=== PATIENT | female | born 1965 | race African-American/Black ===

== ENCOUNTER 2019-03-03 18:20 | Emergency (ER) | payer BC ==
[2019-03-03 19:01] LABS: #Basophils 0.1 thou/uL (0.0-0.2); #Eosinphils 0.1 thou/uL (0.0-0.7); #Lymphocytes 3.8 thou/uL (1.20-3.40); #Monocytes 0.5 thou/uL (0.11-0.59); #Neutrophils 7.4 thou/uL (1.40-6.50); %Eosinophils 0.8 % (0.0-10.0); %Lymphocytes 31.7 % (21.0-51.0); %Monocytes 4.1 % (0.0-10.0); %Neutrophils 62.4 % (42.0-75.0); Hemoglobin 13.8 g/dL (12.0-16.0); Mean Corpuscular HGB CONC 32.2 g/dL (32.0-36.0); Mean Corpuscular Hemoglobin 29.1 pg (27.0-31.0); Mean Corpuscular Volume 90.2 fL (78.0-98.0); Mean Platelet Volume 7.7 fL (7.4-10.4); Platelet Count 290 thou/uL (130-400); RBC Distribution Width 12.8 % (11.5-14.5); Red Blood Cell (RBC) Count 4.76 mill/uL (4.20-5.40); White Blood Cell (WBC) Count 11.8 thou/uL (4.8-10.8)
--- NOTE | 2019-03-03 19:15 | RAD ---
Exam: XR Shoulder Lt 3 View STANDARD HISTORY: Injury to left shoulder. Patient has left shoulder pain after falling today. COMPARISON: None FINDINGS: The coracoclavicular and acromioclavicular distances are within normal limits. There is a prominent o steophyte extending inferiorly from the acromion. Mild left glenohumeral osteoarthropathy is present. There is slight irregularity of the medial margin of the lower body of the scapula probably developmental in origin. This is not thought to represent a fracture. No acute fracture, dislocation, or other acute osseous abnormality is identified. IMPRESSION: No acute osseous abnormality is identified.
[2019-03-03 19:27] LABS: ALT (SGPT) 12 U/L (8-55); AST (SGOT) 13 U/L (5-34); Alkaline Phosphatase 104 U/L (40-150); Anion Gap 16 mmol/L (10-20); BUN (Urea Nitrogen) 15 mg/dL (9.8-20.1); Bilirubin, Total 0.3 mg/dL (0.2-1.2); Calc. Creatinine Clearance 0 mL/min (70-130); Calcium 9.2 mg/dL (7.8-10.44); Carbon Dioxide 22 mmol/L (22-29); Chloride 106 mmol/L (98-107); Estimated GFR-MDRD 74; Globulin 3.5 g/dL (2.4-3.5); Glucose 269 mg/dL (70-105); Potassium 3.9 mmol/L (3.5-5.1); Protein, Total 7.5 g/dL (6.0-8.3); Sodium 140 mmol/L (136-145)
[2019-03-03] MEDS ORDERED: Ketorolac Tromethamine 30 MG/ML VIAL ONE (19:27)
--- NOTE | 2019-03-03 20:24 | RAD ---
LEFT HUMERUS: 03/03/19 Two views. HISTORY: Fall with injury. There are no comparison films. There is deformity of the mid diaphysis of the left humerus which appears to represent old healed fra cture. Humeral head is normally positioned. No evidence of dislocation. No acute fracture identified . IMPRESSION: Deformity of the mid left humerus consistent with old healed fracture. POS: [facility]
== END 2019-03-03 20:21 | disposition home or self-care (01) ==
LOC: ERS 18:20
DX: S40.012A Contusion of left shoulder, initial encounter (principal); S00.03XA Contusion of scalp, initial encounter; E11.65 Type 2 diabetes mellitus with hyperglycemia; I10 Essential (primary) hypertension; W01.0XXA Fall on same level from slipping, tripping and stumbling without subsequent striking against object, initial encounter; Y93.01 Activity, walking, marching and hiking
CPT/HCPCS: 36415; 80053; 84484; 85025; 93005; 96372; J1885

== ENCOUNTER 2020-12-17 08:44 | Observation (INO) | payer BC ==
[2020-12-17 10:25] LABS: #Basophils 0.2 thou/uL (0.0-0.2); #Eosinphils 0.1 thou/uL (0.0-0.7); #Monocytes 0.3 thou/uL (0.11-0.59); #Neutrophils 4.6 thou/uL (1.40-6.50); %Basophils 1.7 % (0.0-1.0); %Eosinophils 0.9 % (0.0-10.0); %Lymphocytes 43.5 % (21.0-51.0); %Monocytes 3.2 % (0.0-10.0); %Neutrophils 50.7 % (42.0-75.0); Hemoglobin 13.2 g/dL (12.0-16.0); Mean Corpuscular HGB CONC 31.3 g/dL (32.0-36.0); Mean Corpuscular Hemoglobin 29.9 pg (27.0-31.0); Mean Corpuscular Volume 95.5 fL (78.0-98.0); Mean Platelet Volume 7.6 fL (7.4-10.4); Platelet Count 331 thou/uL (130-400); RBC Distribution Width 14.5 % (11.5-14.5); Red Blood Cell (RBC) Count 4.42 mill/uL (4.20-5.40); White Blood Cell (WBC) Count 9.2 thou/uL (4.8-10.8)
[2020-12-17 10:50] LABS: ALT (SGPT) 8 U/L (8-55); AST (SGOT) 8 U/L (5-34); Albumin 3.9 g/dL (3.5-5.0); Alkaline Phosphatase 83 U/L (40-110); Anion Gap 15 mmol/L (10-20); BUN (Urea Nitrogen) 14 mg/dL (9.8-20.1); Bilirubin, Total 0.6 mg/dL (0.2-1.2); Calc. Creatinine Clearance 0 mL/min (70-130); Calcium 9.2 mg/dL (7.8-10.44); Carbon Dioxide 27 mmol/L (22-29); Chloride 102 mmol/L (98-107); Globulin 3.7 g/dL (2.4-3.5); Glucose 142 mg/dL (70-105); Potassium 3.4 mmol/L (3.5-5.1); Protein, Total 7.6 g/dL (6.0-8.3); Sodium 141 mmol/L (136-145)
[2020-12-17] MEDS ORDERED: Aspirin Chewable 81 MG TAB ONE (11:54)
[2020-12-17] MEDS ORDERED: hydrALAZINE 20 MG/ML VIAL SLOW IVP PRN (12:26)
[2020-12-17] MEDS ORDERED: Insulin Regular 300 UNITS/3 ML VIAL SC PRN (12:28)
[2020-12-17] MEDS ORDERED: Dextrose 50% Abboject 50 ML SYRINGE SLOW IVP PRN (12:28)
[2020-12-17] MEDS ORDERED: Dextrose 5% in Water 1,000 ML IV PRN (12:28)
[2020-12-17] MEDS ORDERED: Ondansetron ODT 4 MG TAB PO PRN (12:29)
[2020-12-17] MEDS ORDERED: Senokot S 8.6-50 MG TAB PO PRN (12:29)
[2020-12-17] MEDS ORDERED: Ondansetron PF 4 MG/2 ML Vial IVP PRN (12:29)
[2020-12-17] MEDS ORDERED: Calcium Carbonate 500 MG ChewTAB PO PRN (12:29)
[2020-12-17] MEDS ORDERED: Bisacodyl 10 MG SUPP PR PRN (12:29)
[2020-12-17] MEDS ORDERED: Acetaminophen 325 MG TAB PO PRN (12:29)
[2020-12-17] MEDS ORDERED: Sodium Chloride 0.9% 1,000 ML IV SCH (12:30)
[2020-12-17] MEDS ORDERED: Aspirin 325 MG TAB PO SCH (12:30)
[2020-12-17] MEDS ORDERED: Ibuprofen 200 MG TAB PO PRN (12:30)
[2020-12-17] MEDS ORDERED: Enalaprilat Dihydrate 1.25 MG/ML VIAL SLOW IVP PRN (12:31)
[2020-12-17 13:24] LABS: INR-International Normal Ratio 1.1; PTT 27.5 sec (22.9-36.1); Prothrombin Time 14.2 sec (12.0-14.7)
[2020-12-17 13:34] LABS: CRP (Inflammatory) 3.51 mg/dL (= or < 0.5); Magnesium 2.1 mg/dL (1.6-2.6)
[2020-12-17 13:59] LABS: Thyroid Stimulating Hormone 1.3559 uIU/mL (0.35-4.94)
[2020-12-17] MEDS ORDERED: Iopamidol-370 76% 500 ML 1 ML ONE (14:02)
[2020-12-17] MEDS ORDERED: Cyanocobalamin 1000 MCG/ML VIAL IM SCH (14:15)
[2020-12-17] MEDS ORDERED: Folic Acid 1 MG TAB PO SCH (14:15)
[2020-12-17] MEDS ORDERED: Potassium Chloride 20 MEQ TAB PO SCH (17:00)
[2020-12-17] MEDS: Famotidine 20 MG TAB PO SCH (20:32)
[2020-12-17] MEDS: Lisinopril 10 MG TAB PO SCH (20:32)
[2020-12-17] MEDS: Folic Acid 1 MG TAB PO SCH (20:32)
[2020-12-17] MEDS: Multivit, Therapeutic 1 TAB PO SCH (20:33)
[2020-12-17] MEDS: Atorvastatin Calcium 40 MG TAB PO SCH (20:33)
[2020-12-17] MEDS ORDERED: Insulin Glargine 20 UNITS in Pre-Filled Syringe 1 EACH SC SCH (21:00)
[2020-12-17] MEDS ORDERED: Famotidine/PF 20 mg/2ml Vial SLOW IVP SCH (21:00)
[2020-12-17 21:52] LABS: SARS-CoV-2 PCR by NAA Not Detected (NotDetected)
[2020-12-18 05:34] LABS: #Basophils 0.1 thou/uL (0.0-0.2); #Eosinphils 0.1 thou/uL (0.0-0.7); #Lymphocytes 3.6 thou/uL (1.20-3.40); #Monocytes 0.5 thou/uL (0.11-0.59); #Neutrophils 4.4 thou/uL (1.40-6.50); %Eosinophils 1.1 % (0.0-10.0); %Lymphocytes 42.2 % (21.0-51.0); %Monocytes 5.2 % (0.0-10.0); %Neutrophils 50.6 % (42.0-75.0); Hemoglobin 11.3 g/dL (12.0-16.0); Mean Corpuscular Hemoglobin 30.3 pg (27.0-31.0); Mean Corpuscular Volume 94.8 fL (78.0-98.0); Mean Platelet Volume 7.6 fL (7.4-10.4); Platelet Count 295 thou/uL (130-400); RBC Distribution Width 14.5 % (11.5-14.5); Red Blood Cell (RBC) Count 3.74 mill/uL (4.20-5.40); White Blood Cell (WBC) Count 8.6 thou/uL (4.8-10.8)
[2020-12-18 05:53] LABS: Anion Gap 11 mmol/L (10-20); BUN (Urea Nitrogen) 17 mg/dL (9.8-20.1); Calc. Creatinine Clearance 162 mL/min (70-130); Calcium 8.5 mg/dL (7.8-10.44); Carbon Dioxide 27 mmol/L (22-29); Cardiac Risk 3.5 (Less than 4.5); Chloride 102 mmol/L (98-107); Cholesterol 147 mg/dl (< 200 Desired); Glucose 353 mg/dL (70-105); HDL Cholesterol 42 mg/dL (>60 Neg Risk); LDL Cholesterol, Calculated 91 mg/dL; Sodium 136 mmol/L (136-145); Triglycerides 69 mg/dL (Less than 150)
[2020-12-18] MEDS: Insulin Regular 300 UNITS/3 ML VIAL SC PRN ×3 (06:05→18:16)
[2020-12-18] MEDS ORDERED: Aspirin 325 mg Enteric Coated Tablet PO SCH (09:00)
[2020-12-18] MEDS ORDERED: FLU VACC QS2020-21(6MOS UP)/PF 60 MCG/0.5 ML SYRINGE IM ONE (09:00)
[2020-12-18] MEDS ORDERED: Insulin Glargine 20 UNITS in Pre-Filled Syringe 1 EACH SC SCH (09:00)
[2020-12-18] MEDS: Lisinopril 10 MG TAB PO SCH ×2 (09:22→21:17)
[2020-12-18] MEDS: Famotidine 20 MG TAB PO SCH ×2 (09:22→21:17)
[2020-12-18] MEDS: Enoxaparin Sodium 40 MG/0.4 ML SYRINGE SC SCH (09:22)
[2020-12-18] MEDS: Aspirin 81 mg Enteric Coated Tablet PO SCH (09:23)
[2020-12-18] MEDS: Cyanocobalamin (Vitamin B-12) 1,000 MCG TAB PO SCH (09:23)
[2020-12-18] MEDS: Folic Acid 1 MG TAB PO SCH ×2 (09:23→21:17)
[2020-12-18 16:31] VITALS: BMI 51.6
[2020-12-18] MEDS: Multivit, Therapeutic 1 TAB PO SCH (21:17)
[2020-12-18] MEDS: Atorvastatin Calcium 40 MG TAB PO SCH (21:18)
[2020-12-19] MEDS: Insulin Regular 300 UNITS/3 ML VIAL SC PRN (06:04)
[2020-12-19] MEDS ORDERED: Insulin Glargine 30 UNITS in Pre-Filled Syringe 1 EACH SC SCH (09:00)
[2020-12-19] MEDS: Cyanocobalamin (Vitamin B-12) 1,000 MCG TAB PO SCH (09:22)
[2020-12-19] MEDS: Lisinopril 10 MG TAB PO SCH (09:22)
[2020-12-19] MEDS: Famotidine 20 MG TAB PO SCH (09:22)
[2020-12-19] MEDS: Folic Acid 1 MG TAB PO SCH (09:22)
[2020-12-19] MEDS: Enoxaparin Sodium 40 MG/0.4 ML SYRINGE SC SCH (09:22)
[2020-12-19] MEDS: Aspirin 81 mg Enteric Coated Tablet PO SCH (09:22)
[2020-12-19 12:20] VITALS: BP 123/76; TEMP 97.7
== END 2020-12-19 12:55 | disposition home or self-care (01) ==
LOC: ERS 08:44 → INTOOBSV 11:55 → ERHOLD 11:55 → 2SE 16:50
PROVIDERS: ADMIT Internal Medicine; ATTEND Internal Medicine
DX: H53.2 Diplopia (principal); E11.65 Type 2 diabetes mellitus with hyperglycemia; I10 Essential (primary) hypertension; E78.5 Hyperlipidemia, unspecified; E87.6 Hypokalemia; G90.2 Horner's syndrome; E66.01 Morbid (severe) obesity due to excess calories; Z68.43 Body mass index [BMI] 50.0-59.9, adult; Z87.891 Personal history of nicotine dependence; Z79.4 Long term (current) use of insulin; Z79.899 Other long term (current) drug therapy; Z88.0 Allergy status to penicillin; Z88.1 Allergy status to other antibiotic agents; Z20.822 Contact with and (suspected) exposure to COVID-19
CPT/HCPCS: 36415; 36416; 70450; 70496; 70498; 70553; 80048; 80053; 80061; 82607; 82746; 83036; 83735; 84443; 84484; 85025; 85610; 85652; 85730; 86140; 87635; 90471; 90662; 90732; 93005; 93306; 96372; G0008; G0009; G0378; J1650; J1815; Q9967; U0003; U0005